=== PATIENT | male | born 2000 | race African-American/Black ===

== ENCOUNTER 2024-11-26 07:31 | Emergency (ER) | payer SELFPAY ==
[~2024-11-26] VITALS: Ht 165.1 cm; Wt 79.4 kg
[2024-11-26 07:31] VITALS: BP 118/67; PULSE 74; RESP 16; TEMP 98.3; O2SAT 98
[2024-11-26 08:26] VITALS: BP 118/54; PULSE 64; RESP 16; TEMP 98.3; O2SAT 98
[2024-11-26] MEDS ORDERED: ETOD-80 PO (08:39)
== END 2024-11-26 08:55 | disposition home or self-care (01) ==
LOC: ER 07:31
DX: M23.91 Unspecified internal derangement of right knee (principal)
CPT/HCPCS: 73560; 99283